=== PATIENT | female | born 1940 | race Caucasian/White ===

== ENCOUNTER 2018-06-21 02:08 | Outpatient (RCR) | payer MEDICARE, BC, SELFPAY ==
[2018-06-21 13:23] LABS: HCT 39.8 % (36.0-46.0); Mean Corp. HGB Concentration 35.2 g/dL (32.0-36.0); Mean Corpuscular Hemoglobin 34.7 pg (27.0-33.0); Mean Corpuscular Volume 98.5 fL (80-95); Mean Platelet Volume 8.3 fL (8.0-11.0); Platelet Count 296 x1000/uL (130-400); RBC 4.04 m/cumm (4.00-5.20); White Blood Cell Count 6.04 k/cumm (4.4-10.8)
== END 2018-07-14 ==
LOC: INF 02:08
PROVIDERS: PCP Internal Medicine; Visit Provider Internal Medicine Hematology & Oncology
DX: E83.19 Other disorders of iron metabolism (principal)
CPT/HCPCS: 99195; 85027

== ENCOUNTER 2018-08-17 01:00 | Outpatient (RCR) | payer MEDICARE, SELFPAY | END 2018-09-13 23:59 | disposition home or self-care (01) | LOC: INF 01:00 | PROVIDERS: PCP Internal Medicine; Visit Provider Internal Medicine Hematology & Oncology | DX: E83.19 Other disorders of iron metabolism (principal) | CPT/HCPCS: 99195 ==

== ENCOUNTER 2018-08-17 12:44 | Outpatient (CLI) | payer MEDICARE, BC, SELFPAY ==
[2018-08-17 13:27] LABS: HCT 43.2 % (36.0-46.0); HGB 14.9 g/dL (12.0-15.5); Mean Corp. HGB Concentration 34.5 g/dL (32.0-36.0); Mean Corpuscular Hemoglobin 34.4 pg (27.0-33.0); Mean Corpuscular Volume 99.8 fL (80-95); Platelet Count 302 x1000/uL (130-400); RBC 4.33 m/cumm (4.00-5.20); RBC Distribution Width 12.4 % (11.7-14.6); White Blood Cell Count 5.05 k/cumm (4.4-10.8)
== END 2018-08-17 13:04 ==
PROVIDERS: PCP Internal Medicine; Visit Provider Internal Medicine Hematology & Oncology
DX: E83.119 Hemochromatosis, unspecified (principal)
CPT/HCPCS: 36415; 85027; 99195

== ENCOUNTER 2018-10-12 12:42 | Outpatient (CLI) | payer MEDICARE, BC, SELFPAY ==
[2018-10-12 13:03] LABS: Abs Immature Grans 0.02 k/cumm (0.0-0.09); Absolute Basophil Count 0.03 k/cumm (0.0-0.2); Absolute Eosinophil Count 0.13 k/cumm (0.0-0.7); Absolute Lymphocyte Count 0.99 k/cumm (1.2-3.4); Basophils % 0.7; HCT 42.7 % (36.0-46.0); HGB 14.7 g/dL (12.0-15.5); Immature Grans % 0.5; Lymphocytes % 22.6; Mean Corp. HGB Concentration 34.4 g/dL (32.0-36.0); Mean Corpuscular Hemoglobin 34.5 pg (27.0-33.0); Mean Corpuscular Volume 100.2 fL (80-95); Monocytes % 13.7; Neutrophils % 59.5; Platelet Count 273 x1000/uL (130-400); RBC 4.26 m/cumm (4.00-5.20); RBC Distribution Width 12.5 % (11.7-14.6); White Blood Cell Count 4.39 k/cumm (4.4-10.8)
[2018-10-12 13:14] LABS: Absolute Neutrophil Count 2.61 k/cumm (1.2-6.7)
== END 2018-10-12 13:02 ==
PROVIDERS: Internal Medicine Hematology & Oncology; PCP Internal Medicine; Visit Provider Nurse Practitioner Adult Health
DX: C50.919 Malignant neoplasm of unspecified site of unspecified female breast (principal)
CPT/HCPCS: 36415; 99195; 85025

== ENCOUNTER 2018-10-12 13:20 | Outpatient (RCR) | payer MEDICARE, BC, SELFPAY | END 2018-10-13 23:59 | disposition home or self-care (01) | LOC: INF 13:20 | PROVIDERS: PCP Internal Medicine; Visit Provider Internal Medicine Hematology & Oncology | DX: E83.19 Other disorders of iron metabolism (principal) | CPT/HCPCS: 99195 ==

== ENCOUNTER 2018-12-07 00:53 | Outpatient (RCR) | payer MEDICARE, BC, SELFPAY ==
[2018-12-07 13:46] LABS: Abs Immature Grans 0.01 k/cumm (0.0-0.09); Absolute Basophil Count 0.03 k/cumm (0.0-0.2); Absolute Eosinophil Count 0.08 k/cumm (0.0-0.7); Absolute Monocyte Count 0.68 k/cumm (0.11-0.7); Basophils % 0.7; HCT 41.6 % (36.0-46.0); HGB 14.4 g/dL (12.0-15.5); Immature Grans % 0.2; Mean Corp. HGB Concentration 34.6 g/dL (32.0-36.0); Mean Corpuscular Hemoglobin 34.4 pg (27.0-33.0); Mean Corpuscular Volume 99.5 fL (80-95); Mean Platelet Volume 8.8 fL (8.0-11.0); Monocytes % 16.6; Neutrophils % 58.5; Platelet Count 284 x1000/uL (130-400); RBC 4.18 m/cumm (4.00-5.20); RBC Distribution Width 12.7 % (11.7-14.6)
== END 2018-12-14 23:59 | disposition home or self-care (01) ==
LOC: INF 00:53
PROVIDERS: Nurse Practitioner Adult Health; PCP Internal Medicine; Visit Provider Internal Medicine Hematology & Oncology
DX: E83.19 Other disorders of iron metabolism (principal)
CPT/HCPCS: 36415; 99195; 85025

== ENCOUNTER 2019-02-01 02:23 | Outpatient (RCR) | payer MEDICARE, BC, SELFPAY ==
[2019-02-01 13:09] LABS: Abs Immature Grans 0.03 k/cumm (0.0-0.09); Absolute Basophil Count 0.04 k/cumm (0.0-0.2); Absolute Eosinophil Count 0.18 k/cumm (0.0-0.7); Absolute Lymphocyte Count 0.92 k/cumm (1.2-3.4); Absolute Monocyte Count 0.93 k/cumm (0.11-0.7); Absolute Neutrophil Count 3.35 k/cumm (1.2-6.7); Basophils % 0.7; Eosinophils % 3.3; HCT 42.1 % (36.0-46.0); HGB 14.7 g/dL (12.0-15.5); Immature Grans % 0.6; Lymphocytes % 16.9; Mean Corp. HGB Concentration 34.9 g/dL (32.0-36.0); Mean Corpuscular Hemoglobin 34.7 pg (27.0-33.0); Mean Corpuscular Volume 99.3 fL (80-95); Mean Platelet Volume 8.7 fL (8.0-11.0); Monocytes % 17.1; Neutrophils % 61.4; Platelet Count 297 x1000/uL (130-400); RBC 4.24 m/cumm (4.00-5.20); RBC Distribution Width 12.4 % (11.7-14.6); White Blood Cell Count 5.45 k/cumm (4.4-10.8)
== END 2019-02-11 23:59 | disposition home or self-care (01) ==
LOC: INF 02:23
PROVIDERS: PCP Internal Medicine; Visit Provider Internal Medicine Hematology & Oncology
DX: E83.119 Hemochromatosis, unspecified (principal); C50.919 Malignant neoplasm of unspecified site of unspecified female breast
CPT/HCPCS: 36415; 99195; 85025

== ENCOUNTER 2019-03-29 01:45 | Outpatient (RCR) | payer MEDICARE, BC, SELFPAY ==
[2019-03-29 13:15] LABS: Abs Immature Grans 0.03 k/cumm (0.0-0.09); Absolute Basophil Count 0.04 k/cumm (0.0-0.2); Absolute Lymphocyte Count 1.07 k/cumm (1.2-3.4); Absolute Monocyte Count 0.63 k/cumm (0.11-0.7); Absolute Neutrophil Count 3.05 k/cumm (1.2-6.7); Basophils % 0.8; HCT 43.3 % (36.0-46.0); HGB 15.3 g/dL (12.0-15.5); Immature Grans % 0.6; Lymphocytes % 21.7; Mean Corp. HGB Concentration 35.3 g/dL (32.0-36.0); Mean Corpuscular Hemoglobin 35.1 pg (27.0-33.0); Mean Corpuscular Volume 99.3 fL (80-95); Monocytes % 12.8; Neutrophils % 62.1; Platelet Count 303 x1000/uL (130-400); RBC 4.36 m/cumm (4.00-5.20); RBC Distribution Width 12.1 % (11.7-14.6); White Blood Cell Count 4.92 k/cumm (4.4-10.8)
== END 2019-04-13 23:59 | disposition home or self-care (01) ==
LOC: INF 01:45
PROVIDERS: Internal Medicine Hematology & Oncology; PCP Internal Medicine; Visit Provider Nurse Practitioner Adult Health
DX: E83.119 Hemochromatosis, unspecified (principal); C50.919 Malignant neoplasm of unspecified site of unspecified female breast
CPT/HCPCS: 36415; 99195; 85025

== ENCOUNTER 2019-04-19 09:49 | Outpatient (CLI) | payer MEDICARE, BC, SELFPAY ==
[2019-04-19 10:12] LABS: Abs Immature Grans 0.02 k/cumm (0.0-0.09); Absolute Basophil Count 0.05 k/cumm (0.0-0.2); Absolute Eosinophil Count 0.08 k/cumm (0.0-0.7); Absolute Lymphocyte Count 0.82 k/cumm (1.2-3.4); Absolute Monocyte Count 0.86 k/cumm (0.11-0.7); Absolute Neutrophil Count 1.18 k/cumm (1.2-6.7); Basophils % 1.7; Eosinophils % 2.7; HGB 14.8 g/dL (12.0-15.5); Immature Grans % 0.7; Lymphocytes % 27.2; Mean Corp. HGB Concentration 35.2 g/dL (32.0-36.0); Mean Corpuscular Hemoglobin 34.8 pg (27.0-33.0); Mean Corpuscular Volume 98.8 fL (80-95); Mean Platelet Volume 8.6 fL (8.0-11.0); Monocytes % 28.6; Neutrophils % 39.1; Platelet Count 299 x1000/uL (130-400); RBC 4.25 m/cumm (4.00-5.20); White Blood Cell Count 3.01 k/cumm (4.4-10.8)
[2019-04-19 10:30] LABS: Iron 143 ug/dL (50-175); Total Iron Binding Capacity 350 ug/dL (250-450); Transferrin Sat 41 % (15-50)
[2019-04-19 10:35] LABS: Diff Comment Agrees w/ Instrument
[2019-04-19 10:36] LABS: RBC Morphology Normal
[2019-04-19 10:39] LABS: ALT 23 U/L (12-78); AST 18 U/L (15-37); Albumin 3.7 g/dL (3.4-5.0); Alkaline Phosphatase 93 U/L (46-116); Anion Gap 8.3 mmol/L (3-11); BUN 15 mg/dL (7-18); Bilirubin, Total 0.6 mg/dL (0.2-1.0); CO2 28.7 mmol/L (21.0-32.0); CREATININE 0.67 mg/dL (0.55-1.02); Calcium 9.5 mg/dL (8.5-10.1); Chloride 92 mmol/L (98-107); Ferritin 40 ng/mL (8-388); Glucose 68 mg/dL (70-100); Potassium 4.4 mmol/L (3.5-5.1); Sodium 129 mmol/L (136-145); Total Protein 7.3 g/dL (6.4-8.2)
== END 2019-04-19 10:09 ==
PROVIDERS: PCP Internal Medicine; Visit Provider Nurse Practitioner Adult Health
DX: C50.919 Malignant neoplasm of unspecified site of unspecified female breast (principal); E83.119 Hemochromatosis, unspecified
CPT/HCPCS: 36415; 80053; 82728; 83540; 83550; 85025

== ENCOUNTER 2019-05-21 01:37 | Outpatient (RCR) | payer MEDICARE, BC, SELFPAY ==
[2019-05-21 13:16] LABS: Abs Immature Grans 0.01 k/cumm (0.0-0.09); Absolute Basophil Count 0.02 k/cumm (0.0-0.2); Absolute Eosinophil Count 0.05 k/cumm (0.0-0.7); Absolute Monocyte Count 0.56 k/cumm (0.11-0.7); Absolute Neutrophil Count 2.78 k/cumm (1.2-6.7); Basophils % 0.5; Eosinophils % 1.1; HCT 43.5 % (36.0-46.0); HGB 15.4 g/dL (12.0-15.5); Immature Grans % 0.2; Lymphocytes % 22.6; Mean Corp. HGB Concentration 35.4 g/dL (32.0-36.0); Mean Corpuscular Hemoglobin 34.7 pg (27.0-33.0); Mean Platelet Volume 8.8 fL (8.0-11.0); Monocytes % 12.7; Neutrophils % 62.9; Platelet Count 304 x1000/uL (130-400); RBC 4.44 m/cumm (4.00-5.20); RBC Distribution Width 12.2 % (11.7-14.6); White Blood Cell Count 4.42 k/cumm (4.4-10.8)
[2019-05-21] MEDS: Normal Saline Flush 10 ML SYR IVP (14:13)
== END 2019-06-13 23:59 | disposition home or self-care (01) ==
LOC: INF 01:37
PROVIDERS: PCP Internal Medicine; Visit Provider Nurse Practitioner Adult Health
DX: C50.919 Malignant neoplasm of unspecified site of unspecified female breast (principal); E83.119 Hemochromatosis, unspecified
CPT/HCPCS: 36415; 99195; 85025

== ENCOUNTER 2019-07-19 04:16 | Outpatient (RCR) | payer MEDICARE, BC, SELFPAY ==
[2019-07-19 13:12] LABS: Abs Immature Grans 0.02 k/cumm (0.0-0.09); Absolute Basophil Count 0.02 k/cumm (0.0-0.2); Absolute Eosinophil Count 0.09 k/cumm (0.0-0.7); Absolute Lymphocyte Count 1.27 k/cumm (1.2-3.4); Absolute Monocyte Count 0.55 k/cumm (0.11-0.7); Absolute Neutrophil Count 2.35 k/cumm (1.2-6.7); Basophils % 0.5; Eosinophils % 2.1; HCT 42.2 % (36.0-46.0); HGB 14.7 g/dL (12.0-15.5); Immature Grans % 0.5; Lymphocytes % 29.5; Mean Corp. HGB Concentration 34.8 g/dL (32.0-36.0); Mean Corpuscular Hemoglobin 35.3 pg (27.0-33.0); Mean Corpuscular Volume 101.2 fL (80-95); Mean Platelet Volume 8.7 fL (8.0-11.0); Monocytes % 12.8; Neutrophils % 54.6; Platelet Count 345 x1000/uL (130-400); RBC 4.17 m/cumm (4.00-5.20); RBC Distribution Width 12.2 % (11.7-14.6)
== END 2019-08-13 23:59 | disposition home or self-care (01) ==
LOC: INF 04:16
PROVIDERS: PCP Internal Medicine; Visit Provider Nurse Practitioner Adult Health
DX: E83.119 Hemochromatosis, unspecified (principal); C50.919 Malignant neoplasm of unspecified site of unspecified female breast
CPT/HCPCS: 36415; 99195; 85025

== ENCOUNTER 2019-09-10 02:03 | Outpatient (RCR) | payer MEDICARE, BC, SELFPAY ==
[2019-09-10 13:15] LABS: HCT 41.7 % (36.0-46.0); HGB 14.3 g/dL (12.0-15.5); Mean Corp. HGB Concentration 34.3 g/dL (32.0-36.0); Mean Corpuscular Hemoglobin 35.1 pg (27.0-33.0); Mean Corpuscular Volume 102.5 fL (80-95); Mean Platelet Volume 8.8 fL (8.0-11.0); Platelet Count 346 x1000/uL (130-400); RBC 4.07 m/cumm (4.00-5.20); RBC Distribution Width 11.9 % (11.7-14.6); White Blood Cell Count 4.94 k/cumm (4.4-10.8)
== END 2019-09-13 23:59 | disposition home or self-care (01) ==
LOC: INF 02:03
PROVIDERS: PCP Internal Medicine; Visit Provider Internal Medicine Hematology & Oncology
DX: E83.119 Hemochromatosis, unspecified (principal)
CPT/HCPCS: 36415; 85027; 99195

== ENCOUNTER 2019-11-05 01:22 | Outpatient (RCR) | payer MEDICARE, BC, SELFPAY ==
[2019-11-05 13:10] LABS: Abs Immature Grans 0.01 k/cumm (0.0-0.09); Absolute Basophil Count 0.03 k/cumm (0.0-0.2); Absolute Eosinophil Count 0.18 k/cumm (0.0-0.7); Absolute Lymphocyte Count 1.13 k/cumm (1.2-3.4); Absolute Monocyte Count 0.73 k/cumm (0.11-0.7); Absolute Neutrophil Count 3.37 k/cumm (1.2-6.7); Basophils % 0.6; Eosinophils % 3.3; HCT 39.8 % (36.0-46.0); HGB 13.4 g/dL (12.0-15.5); Immature Grans % 0.2; Lymphocytes % 20.7; Mean Corp. HGB Concentration 33.7 g/dL (32.0-36.0); Mean Platelet Volume 8.8 fL (8.0-11.0); Monocytes % 13.4; Neutrophils % 61.8; Platelet Count 269 x1000/uL (130-400); RBC 3.94 m/cumm (4.00-5.20); RBC Distribution Width 12.7 % (11.7-14.6); White Blood Cell Count 5.45 k/cumm (4.4-10.8)
== END 2019-11-13 23:59 | disposition home or self-care (01) ==
LOC: INF 01:22
PROVIDERS: PCP Internal Medicine; Visit Provider Internal Medicine Hematology & Oncology
DX: E83.119 Hemochromatosis, unspecified (principal); C50.919 Malignant neoplasm of unspecified site of unspecified female breast
CPT/HCPCS: 36415; 99195; 85025

== ENCOUNTER 2019-12-31 03:13 | Outpatient (RCR) | payer MEDICARE, BC, SELFPAY ==
[2019-12-31 13:06] LABS: Abs Immature Grans 0.02 k/cumm (0.0-0.09); Absolute Basophil Count 0.03 k/cumm (0.0-0.2); Absolute Eosinophil Count 0.05 k/cumm (0.0-0.7); Absolute Lymphocyte Count 0.86 k/cumm (1.2-3.4); Absolute Neutrophil Count 3.81 k/cumm (1.2-6.7); Basophils % 0.5; Eosinophils % 0.9; HCT 40.5 % (36.0-46.0); HGB 13.6 g/dL (12.0-15.5); Immature Grans % 0.4 %; Lymphocytes % 15.7; Mean Corp. HGB Concentration 33.6 g/dL (32.0-36.0); Mean Corpuscular Hemoglobin 32.6 pg (27.0-33.0); Mean Corpuscular Volume 97.1 fL (80-95); Mean Platelet Volume 8.7 fL (8.0-11.0); Monocytes % 12.8; Neutrophils % 69.7; Platelet Count 333 x1000/uL (130-400); RBC 4.17 m/cumm (4.00-5.20); RBC Distribution Width 12.6 % (11.7-14.6); White Blood Cell Count 5.47 k/cumm (4.4-10.8)
[2020-04-21 13:17] LABS: Mean Corp. HGB Concentration 34.9 g/dL (32.0-36.0); Mean Corpuscular Hemoglobin 33.2 pg (27.0-33.0); Mean Corpuscular Volume 95.1 fL (80-95); Mean Platelet Volume 8.7 fL (8.0-11.0); Platelet Count 352 x1000/uL (130-400); RBC 4.52 m/cumm (4.00-5.20); RBC Distribution Width 13.7 % (11.7-14.6); White Blood Cell Count 4.68 k/cumm (4.4-10.8)
== END 2020-01-12 23:01 | disposition other institution (70) ==
LOC: INF 03:13
PROVIDERS: PCP Internal Medicine; Visit Provider Internal Medicine Hematology & Oncology
DX: E83.119 Hemochromatosis, unspecified (principal); C50.919 Malignant neoplasm of unspecified site of unspecified female breast
CPT/HCPCS: 36415; 85027; 99195; 85025

== ENCOUNTER 2020-04-23 15:49 | Outpatient (RCR) | payer MEDICARE, BC, SELFPAY | END 2020-05-13 23:59 | disposition home or self-care (01) | LOC: INF 15:49 | PROVIDERS: PCP Internal Medicine; Visit Provider Internal Medicine Hematology & Oncology | DX: E83.118 Other hemochromatosis (principal) | CPT/HCPCS: 36415; 85027; 99195 ==

== ENCOUNTER 2020-06-23 02:03 | Outpatient (RCR) | payer MEDICARE, BC, SELFPAY ==
[2020-06-23 13:08] LABS: Abs Immature Grans 0.03 10^3/uL (0.0-0.06); Absolute Basophil Count 0.05 10^3/uL (0.0-0.2); Absolute Eosinophil Count 0.07 10^3/uL (0.0-0.7); Absolute Lymphocyte Count 1.04 10^3/uL (1.2-3.4); Absolute Monocyte Count 0.76 10^3/uL (0.1-0.8); Absolute Neutrophil Count 3.08 10^3/uL (1.2-6.7); Eosinophils % 1.4; HGB 14.1 g/dL (11.2-15.7); Immature Grans % 0.6; Lymphocytes % 20.7; MCH 34.1 pg (27.0-33.0); MCHC 34.4 % (32.0-36.0); MCV 99.3 fL (80-95); MPV 8.5 fL (8.0-11.0); Monocytes % 15.1; Neutrophils % 61.2; Nucleated RBC 0 %; Platelet Count 331 10^3/uL (130-400); RBC 4.13 10^6/uL (3.93-5.22); RDW 12.4 % (11.7-14.6); WBC 5.03 10^3/uL (4.4-10.8)
[2020-06-23] MEDS: Normal Saline Flush 10 ML SYR IVP (13:31)
[2020-06-23 14:02] LABS: ALT 25 U/L (14-59); AST 22 U/L (15-37); Alkaline Phosphatase 99 U/L (46-116); BUN 12 mg/dL (7-18); Bilirubin, Total 0.5 mg/dL (0.2-1.0); CREATININE 0.63 mg/dL (0.55-1.02); Calcium 9.5 mg/dL (8.5-10.1); Chloride 92 mmol/L (98-107); Ferritin 41 ng/mL (8-252); Glucose 75 mg/dL (74-106); Potassium 3.7 mmol/L (3.5-5.1); Sodium 129 mmol/L (136-145); Total Protein 7.2 g/dL (6.4-8.2)
== END 2020-07-14 23:59 | disposition home or self-care (01) ==
LOC: INF 02:03
PROVIDERS: PCP Internal Medicine; Visit Provider Internal Medicine Hematology & Oncology
DX: E83.19 Other disorders of iron metabolism (principal)
CPT/HCPCS: 36415; 80053; 99195; 82728; 85025

== ENCOUNTER 2020-08-18 01:01 | Outpatient (RCR) | payer MEDICARE, BC, SELFPAY ==
[2020-08-18 13:01] LABS: Abs Immature Grans 0.02 10^3/uL (0.0-0.06); Absolute Basophil Count 0.04 10^3/uL (0.0-0.2); Absolute Eosinophil Count 0.05 10^3/uL (0.0-0.7); Absolute Lymphocyte Count 1.22 10^3/uL (1.2-3.4); Absolute Monocyte Count 0.66 10^3/uL (0.1-0.8); Basophils % 0.7; Eosinophils % 0.9; Immature Grans % 0.3; Lymphocytes % 21.1; MCH 35.5 pg (27.0-33.0); MCHC 34.9 % (32.0-36.0); MCV 101.9 fL (80-95); MPV 8.5 fL (8.0-11.0); Monocytes % 11.4; Neutrophils % 65.6; Nucleated RBC 0 %; Platelet Count 337 10^3/uL (130-400); RBC 4.22 10^6/uL (3.93-5.22); RDW-SD 45.1 fL; WBC 5.79 10^3/uL (4.4-10.8)
== END 2020-09-13 23:59 | disposition home or self-care (01) ==
LOC: INF 01:01
PROVIDERS: PCP Internal Medicine; Visit Provider Internal Medicine Hematology & Oncology
DX: E83.119 Hemochromatosis, unspecified (principal)
CPT/HCPCS: 36415; 99195; 85025

== ENCOUNTER 2020-10-20 13:00 | Outpatient (RCR) | payer MEDICARE, BC, SELFPAY ==
[2020-10-20 13:21] LABS: Abs Immature Grans 0.03 10^3/uL (0.0-0.06); Absolute Basophil Count 0.04 10^3/uL (0.0-0.2); Absolute Eosinophil Count 0.13 10^3/uL (0.0-0.7); Absolute Lymphocyte Count 1.15 10^3/uL (1.2-3.4); Absolute Monocyte Count 0.74 10^3/uL (0.1-0.8); Absolute Neutrophil Count 2.53 10^3/uL (1.2-6.7); Basophils % 0.9; Eosinophils % 2.8; HCT 43.9 % (36.0-46.0); HGB 14.8 g/dL (11.2-15.7); Immature Grans % 0.6; Lymphocytes % 24.9; MCH 33.7 pg (27.0-33.0); MCHC 33.7 % (32.0-36.0); MPV 8.7 fL (8.0-11.0); Neutrophils % 54.8; Nucleated RBC 0 %; Platelet Count 312 10^3/uL (130-400); RBC 4.39 10^6/uL (3.93-5.22); RDW 12.1 % (11.7-14.6); WBC 4.62 10^3/uL (4.4-10.8)
== END 2020-11-13 23:59 | disposition home or self-care (01) ==
LOC: INF 13:00
PROVIDERS: PCP Internal Medicine; Visit Provider Internal Medicine Hematology & Oncology
DX: E83.110 Hereditary hemochromatosis (principal)
CPT/HCPCS: 36415; 99195; 85025

== ENCOUNTER 2020-12-22 13:00 | Outpatient (RCR) | payer MEDICARE, BC, SELFPAY ==
[2020-12-22 13:03] LABS: Abs Immature Grans 0.03 10^3/uL (0.0-0.06); Absolute Basophil Count 0.06 10^3/uL (0.0-0.2); Absolute Eosinophil Count 0.17 10^3/uL (0.0-0.7); Absolute Lymphocyte Count 1.19 10^3/uL (1.2-3.4); Absolute Monocyte Count 0.92 10^3/uL (0.1-0.8); Absolute Neutrophil Count 2.14 10^3/uL (1.2-6.7); Basophils % 1.3; Eosinophils % 3.8; HGB 14.4 g/dL (11.2-15.7); Immature Grans % 0.7; Lymphocytes % 26.4; MCHC 33.5 % (32.0-36.0); MCV 101.4 fL (80-95); MPV 8.7 fL (8.0-11.0); Monocytes % 20.4; Neutrophils % 47.4; Nucleated RBC 0 %; Platelet Count 299 10^3/uL (130-400); RBC 4.24 10^6/uL (3.93-5.22); RDW 12.5 % (11.7-14.6); WBC 4.51 10^3/uL (4.4-10.8)
[2020-12-22 13:28] LABS: Iron 57 ug/dL (50-170); Total Iron Binding Capacity 389 ug/dL (250-450); Transferrin Sat 15 % (15-50)
[2020-12-22] MEDS: Normal Saline Flush 10 ML SYR IVP (13:28)
[2020-12-22 13:29] LABS: ALT 24 U/L (14-59); AST 18 U/L (15-37); Albumin 3.8 g/dL (3.4-5.0); Alkaline Phosphatase 114 U/L (46-116); Anion Gap 8.3 mmol/L (3-11); BUN 13 mg/dL (7-18); Bilirubin, Total 0.4 mg/dL (0.2-1.0); CO2 27.7 mmol/L (21.0-32.0); CREATININE 0.7 mg/dL (0.55-1.02); Calcium 9.6 mg/dL (8.5-10.1); Chloride 97 mmol/L (98-107); Ferritin 25 ng/mL (8-252); Glucose 82 mg/dL (74-106); Potassium 3.7 mmol/L (3.5-5.1); Sodium 133 mmol/L (136-145); Total Protein 7.8 g/dL (6.4-8.2)
== END 2021-01-11 23:59 | disposition home or self-care (01) ==
LOC: INF 13:00
PROVIDERS: PCP Internal Medicine; Visit Provider Internal Medicine Hematology & Oncology
DX: E83.110 Hereditary hemochromatosis (principal)
CPT/HCPCS: 36415; 80053; 99195; 82728; 83540; 83550; 85025

== ENCOUNTER 2021-02-03 01:39 | Outpatient (CLI) | payer MEDICARE, BC, SELFPAY ==
--- NOTE | 2021-02-03 | DI.DEXA_ITS ---
EXAM: XR DEXA BONE DENSITY W/WO SHELLY CLINICAL HISTORY: SCREENING FOR OSTEOPOROSIS IN POSTMENOPAUSAL WOMAN,Z78.0,H/O OSTEOPENIA TECHNIQUE: Routine DEXA evaluation of the lumbar spine, hip, or forearm. COMPARISON: Prior DXA scans, most recent being November 2016 FINDINGS: Performed on a [employer] unit. Lateral image: No compression fracture evident. Lumbar Spine total T-score: -1.6 . Prior 2017 reading was -0.9 Hip total T-score:-2.6. Prior 2017 reading was -2.0 Independent reading at the femoral neck level yields a T-score of -2.5 Forearm total T-score: -1.6. IMPRESSION: Bone mineral density measures in the osteoporosis range. Fracture risk is high. Note: Any spine fracture indicates 5x risk for subsequent spine fracture and 2x risk for subsequent h ip fracture. World Health Organization criteria for BMD interpretation classify patients: Normal...... T- Score at or above -1.0 Osteopenic... T- Score between -1.0 and -2.5 Osteoporosis... T-Score at or below -2.5
== END 2021-02-03 01:59 ==
PROVIDERS: PCP Internal Medicine; Visit Provider Internal Medicine
DX: Z78.0 Asymptomatic menopausal state (principal); M85.89 Other specified disorders of bone density and structure, multiple sites
CPT/HCPCS: 77080

== ENCOUNTER 2021-02-17 13:00 | Outpatient (RCR) | payer MEDICARE, BC, SELFPAY ==
[2021-02-17 13:04] LABS: Abs Immature Grans 0.04 10^3/uL (0.0-0.06); Absolute Basophil Count 0.04 10^3/uL (0.0-0.2); Absolute Eosinophil Count 0.09 10^3/uL (0.0-0.7); Absolute Lymphocyte Count 1.04 10^3/uL (1.2-3.4); Absolute Monocyte Count 0.66 10^3/uL (0.1-0.8); Absolute Neutrophil Count 2.78 10^3/uL (1.2-6.7); Basophils % 0.9; Eosinophils % 1.9; HCT 38.6 % (36.0-46.0); HGB 12.9 g/dL (11.2-15.7); Immature Grans % 0.9; Lymphocytes % 22.4; MCH 32.9 pg (27.0-33.0); MCHC 33.4 % (32.0-36.0); MCV 98.5 fL (80-95); MPV 9.2 fL (8.0-11.0); Monocytes % 14.2; Neutrophils % 59.7; Nucleated RBC 0 %; Platelet Count 359 10^3/uL (130-400); RBC 3.92 10^6/uL (3.93-5.22); RDW 12.6 % (11.7-14.6); RDW-SD 45.6 fL; WBC 4.65 10^3/uL (4.4-10.8)
[2021-02-17] MEDS: Normal Saline Flush 10 ML SYR IVP (13:48)
== END 2021-03-13 23:59 | disposition home or self-care (01) ==
LOC: INF 13:00
PROVIDERS: PCP Internal Medicine; Visit Provider Internal Medicine Hematology & Oncology
DX: E83.110 Hereditary hemochromatosis (principal)
CPT/HCPCS: 36415; 99195; 85025

== ENCOUNTER 2021-04-14 13:00 | Outpatient (RCR) | payer MEDICARE, BC, SELFPAY ==
[2021-04-14 13:07] LABS: Abs Immature Grans 0.02 10^3/uL (0.0-0.06); Absolute Basophil Count 0.05 10^3/uL (0.0-0.2); Absolute Lymphocyte Count 1.04 10^3/uL (1.2-3.4); Absolute Monocyte Count 0.56 10^3/uL (0.1-0.8); Absolute Neutrophil Count 3.33 10^3/uL (1.2-6.7); Eosinophils % 3.8; HCT 42.7 % (36.0-46.0); HGB 14.1 g/dL (11.2-15.7); Immature Grans % 0.4; MCH 31.8 pg (27.0-33.0); MCV 96.4 fL (80-95); Monocytes % 10.8; Nucleated RBC 0 %; Platelet Count 351 10^3/uL (130-400); RBC 4.43 10^6/uL (3.93-5.22); RDW 13.6 % (11.7-14.6); RDW-SD 49.1 fL
[2021-04-14] MEDS: Normal Saline Flush 10 ML SYR IVP (13:40)
== END 2021-05-13 23:59 | disposition home or self-care (01) ==
LOC: INF 13:00
PROVIDERS: PCP Internal Medicine; Visit Provider Internal Medicine Hematology & Oncology
DX: E83.110 Hereditary hemochromatosis (principal)
CPT/HCPCS: 36415; 99195; 85025

== ENCOUNTER 2021-06-09 13:00 | Outpatient (RCR) | payer MEDICARE, BC, SELFPAY ==
[2021-06-09 13:18] LABS: HCT 40.1 % (36.0-46.0); MCH 31.7 pg (27.0-33.0); MCHC 32.4 % (32.0-36.0); MCV 97.8 fL (80-95); MPV 9.1 fL (8.0-11.0); Platelet Count 285 10^3/uL (130-400); RDW 13.8 % (11.7-14.6); WBC 3.76 10^3/uL (4.4-10.8)
[2021-06-09] MEDS: Normal Saline Flush 10 ML SYR IVP (14:09)
== END 2021-06-13 23:59 | disposition home or self-care (01) ==
LOC: INF 13:00
PROVIDERS: PCP Internal Medicine; Visit Provider Internal Medicine Hematology & Oncology
DX: E83.110 Hereditary hemochromatosis (principal)
CPT/HCPCS: 36415; 85027; 99195

== ENCOUNTER 2021-08-04 13:00 | Outpatient (RCR) | payer MEDICARE, BC, SELFPAY ==
[2021-08-04] MEDS: Normal Saline Flush 10 ML SYR IVP (12:59)
[2021-08-04 13:05] LABS: Abs Immature Grans 0.01 10^3/uL (0.0-0.06); Absolute Basophil Count 0.05 10^3/uL (0.0-0.2); Absolute Eosinophil Count 0.24 10^3/uL (0.0-0.7); Absolute Lymphocyte Count 1.26 10^3/uL (1.2-3.4); Absolute Monocyte Count 0.85 10^3/uL (0.1-0.8); Absolute Neutrophil Count 2.12 10^3/uL (1.2-6.7); Basophils % 1.1; Eosinophils % 5.3; HCT 41.5 % (36.0-46.0); HGB 13.3 g/dL (11.2-15.7); Immature Grans % 0.2; Lymphocytes % 27.8; MCH 31.2 pg (27.0-33.0); MCV 97.4 fL (80-95); MPV 9.1 fL (8.0-11.0); Monocytes % 18.8; Neutrophils % 46.8; Nucleated RBC 0 %; Platelet Count 285 10^3/uL (130-400); RBC 4.26 10^6/uL (3.93-5.22); RDW 14.3 % (11.7-14.6); WBC 4.53 10^3/uL (4.4-10.8)
== END 2021-08-13 23:59 | disposition home or self-care (01) ==
LOC: INF 13:00
PROVIDERS: Nurse Practitioner Family; PCP Internal Medicine; Visit Provider Internal Medicine Hematology & Oncology
DX: E83.110 Hereditary hemochromatosis (principal)
CPT/HCPCS: 36415; 99195; 85025

== ENCOUNTER 2021-09-29 13:00 | Outpatient (RCR) | payer MEDICARE, BC, SELFPAY ==
[2021-09-29 13:22] LABS: HCT 41.3 % (36.0-46.0); HGB 13.3 g/dL (11.2-15.7); MCH 31.2 pg (27.0-33.0); MCHC 32.2 % (32.0-36.0); MCV 96.9 fL (80-95); MPV 9.3 fL (8.0-11.0); Platelet Count 338 10^3/uL (130-400); RBC 4.26 10^6/uL (3.93-5.22); RDW 14.1 % (11.7-14.6); RDW-SD 50.9 fL; WBC 4.56 10^3/uL (4.4-10.8)
[2021-09-29] MEDS: Normal Saline Flush 10 ML SYR IVP (13:33)
== END 2021-10-13 23:59 | disposition home or self-care (01) ==
LOC: INF 13:00
PROVIDERS: PCP Internal Medicine; Visit Provider Internal Medicine Hematology & Oncology
DX: E83.110 Hereditary hemochromatosis (principal)
CPT/HCPCS: 36415; 85027; 99195

== ENCOUNTER 2021-12-01 13:00 | Outpatient (RCR) | payer MEDICARE, BC, SELFPAY ==
[2021-12-01] MEDS: Normal Saline Flush 10 ML SYR IVP (13:03)
[2021-12-01 13:15] LABS: HCT 41.4 % (36.0-46.0); HGB 13.4 g/dL (11.2-15.7); MCH 31.5 pg (27.0-33.0); MCHC 32.4 % (32.0-36.0); MCV 97.2 fL (80-95); MPV 9.4 fL (8.0-11.0); Platelet Count 301 10^3/uL (130-400); RBC 4.26 10^6/uL (3.93-5.22); RDW 14.2 % (11.7-14.6); RDW-SD 50.9 fL; WBC 5.38 10^3/uL (4.4-10.8)
== END 2021-12-14 23:59 | disposition home or self-care (01) ==
LOC: INF 13:00
PROVIDERS: PCP Internal Medicine; Visit Provider Internal Medicine Hematology & Oncology
DX: E83.110 Hereditary hemochromatosis (principal)
CPT/HCPCS: 36415; 85027; 99195

== ENCOUNTER 2022-01-26 00:52 | Outpatient (RCR) | payer MEDICARE, BC, SELFPAY ==
[2022-01-26 13:21] LABS: HCT 40.9 % (36.0-46.0); HGB 13.3 g/dL (11.2-15.7); MCH 31.7 pg (27.0-33.0); MCHC 32.5 % (32.0-36.0); MCV 97.6 fL (80-95); MPV 9.2 fL (8.0-11.0); Platelet Count 298 10^3/uL (130-400); RBC 4.19 10^6/uL (3.93-5.22); RDW 14.2 % (11.7-14.6); RDW-SD 51.1 fL; WBC 6.22 10^3/uL (4.4-10.8)
[2022-01-26] MEDS: Normal Saline Flush 10 ML SYR IVP (13:43)
== END 2022-02-11 23:59 | disposition home or self-care (01) ==
LOC: INF 00:52
PROVIDERS: PCP Internal Medicine; Visit Provider Internal Medicine Hematology & Oncology
DX: E83.110 Hereditary hemochromatosis (principal)
CPT/HCPCS: 36415; 85027; 99195

== ENCOUNTER 2022-03-23 00:56 | Outpatient (RCR) | payer MEDICARE, BC, SELFPAY ==
[2022-03-23] MEDS: Normal Saline Flush 10 ML SYR IVP (13:00)
[2022-03-23 13:21] LABS: HCT 42.6 % (36.0-46.0); HGB 13.3 g/dL (11.2-15.7); MCH 30.5 pg (27.0-33.0); MCHC 31.2 % (32.0-36.0); MCV 98 fL (80-95); MPV 9.2 fL (8.0-11.0); Platelet Count 317 10^3/uL (130-400); RBC 4.36 10^6/uL (3.93-5.22); RDW 14.2 % (11.7-14.6); RDW-SD 51.5 fL; WBC 5.81 10^3/uL (4.4-10.8)
== END 2022-04-13 23:59 | disposition home or self-care (01) ==
LOC: INF 00:56
PROVIDERS: PCP Internal Medicine; Visit Provider Internal Medicine Hematology & Oncology
DX: E83.110 Hereditary hemochromatosis (principal)
CPT/HCPCS: 36415; 85027; 99195

== ENCOUNTER 2022-05-18 02:04 | Outpatient (RCR) | payer MEDICARE, BC, SELFPAY ==
[2022-05-18 13:15] LABS: HCT 39.3 % (36.0-46.0); MCHC 33.1 % (32.0-36.0); MCV 94 fL (80-95); MPV 9.3 fL (8.0-11.0); Platelet Count 286 10^3/uL (130-400); RBC 4.19 10^6/uL (3.93-5.22); RDW 14.2 % (11.7-14.6); RDW-SD 48.9 fL; WBC 4.53 10^3/uL (4.4-10.8)
== END 2022-06-13 23:59 | disposition home or self-care (01) ==
LOC: INF 02:04
PROVIDERS: PCP Internal Medicine; Visit Provider Internal Medicine Hematology & Oncology
DX: E83.110 Hereditary hemochromatosis (principal)
CPT/HCPCS: 36415; 85027; 99195

== ENCOUNTER 2022-07-13 02:47 | Outpatient (RCR) | payer MEDICARE, BC, SELFPAY ==
[2022-07-13] MEDS: Normal Saline Flush 10 ML SYR IVP (13:22)
[2022-07-13 13:25] LABS: HCT 40.2 % (36.0-46.0); MCH 30.8 pg (27.0-33.0); MCHC 32.3 % (32.0-36.0); MCV 95 fL (80-95); MPV 9.3 fL (8.0-11.0); Platelet Count 306 10^3/uL (130-400); RBC 4.22 10^6/uL (3.93-5.22); RDW 15.2 % (11.7-14.6); RDW-SD 53.3 fL
== END 2022-07-14 23:59 | disposition home or self-care (01) ==
LOC: INF 02:47
PROVIDERS: PCP Internal Medicine; Visit Provider Internal Medicine Hematology & Oncology
DX: E83.110 Hereditary hemochromatosis (principal)
CPT/HCPCS: 36415; 85027; 99195

== ENCOUNTER 2022-09-07 02:16 | Outpatient (RCR) | payer MEDICARE, BC, SELFPAY ==
[2022-09-07 13:22] LABS: Abs Immature Grans 0.02 10^3/uL (0.0-0.06); Absolute Basophil Count 0.06 10^3/uL (0.0-0.2); Absolute Eosinophil Count 0.07 10^3/uL (0.0-0.7); Absolute Monocyte Count 0.57 10^3/uL (0.1-0.8); Absolute Neutrophil Count 3.05 10^3/uL (1.2-6.7); Basophils % 1.2; Eosinophils % 1.4; Immature Grans % 0.4; Lymphocytes % 27.1; MCH 31.6 pg (27.0-33.0); MCHC 32.5 % (32.0-36.0); MCV 97 fL (80-95); MPV 9.2 fL (8.0-11.0); Neutrophils % 58.9; Platelet Count 340 10^3/uL (130-400); RBC 4.11 10^6/uL (3.93-5.22); RDW 14.2 % (11.7-14.6); RDW-SD 51.5 fL; WBC 5.17 10^3/uL (4.4-10.8)
[2022-09-07 14:05] LABS: Iron 74 ug/dL (50-170); Total Iron Binding Capacity 432 ug/dL (250-450); Transferrin Sat 17 % (15-50)
[2022-09-07 14:20] LABS: ALT 15 U/L (14-59); AST 16 U/L (15-37); Albumin 3.9 g/dL (3.4-5.0); Alkaline Phosphatase 85 U/L (46-116); Anion Gap 6.7 mmol/L (3-11); BUN 20 mg/dL (7-18); Bilirubin, Total 0.4 mg/dL (0.2-1.0); CO2 29.3 mmol/L (21.0-32.0); CREATININE 0.9 mg/dL (0.55-1.02); Calcium 9.7 mg/dL (8.5-10.1); Chloride 103 mmol/L (98-107); Estimated GFR 64.23 (mL/min/1.73m2); Ferritin 21 ng/mL (8-252); Glucose 94 mg/dL (74-106); Potassium 3.8 mmol/L (3.5-5.1); Sodium 139 mmol/L (136-145); Total Protein 7.8 g/dL (6.4-8.2)
== END 2022-09-13 23:59 | disposition home or self-care (01) ==
LOC: INF 02:16
PROVIDERS: PCP Internal Medicine; Visit Provider Internal Medicine Hematology & Oncology
DX: E83.110 Hereditary hemochromatosis (principal)
CPT/HCPCS: 36415; 80053; 82728; 83540; 83550; 85025

== ENCOUNTER 2022-09-14 03:06 | Outpatient (RCR) | payer MEDICARE, BC, SELFPAY | END 2022-10-13 23:59 | disposition home or self-care (01) | LOC: INF 03:06 | PROVIDERS: PCP Internal Medicine; Visit Provider Internal Medicine Hematology & Oncology | DX: E83.110 Hereditary hemochromatosis (principal) | CPT/HCPCS: 99195 ==

== ENCOUNTER 2022-12-07 03:08 | Outpatient (RCR) | payer MEDICARE, BC, SELFPAY ==
[2022-12-07 13:13] LABS: Abs Immature Grans 0.02 10^3/uL (0.0-0.06); Absolute Basophil Count 0.04 10^3/uL (0.0-0.2); Absolute Eosinophil Count 0.17 10^3/uL (0.0-0.7); Absolute Lymphocyte Count 1.24 10^3/uL (1.2-3.4); Absolute Monocyte Count 0.49 10^3/uL (0.1-0.8); Absolute Neutrophil Count 3.06 10^3/uL (1.2-6.7); Basophils % 0.8; Eosinophils % 3.4; HCT 40.1 % (36.0-46.0); HGB 12.9 g/dL (11.2-15.7); Immature Grans % 0.4; Lymphocytes % 24.7; MCH 31.2 pg (27.0-33.0); MCHC 32.2 % (32.0-36.0); MCV 97 fL (80-95); MPV 9.1 fL (8.0-11.0); Monocytes % 9.8; Neutrophils % 60.9; Platelet Count 309 10^3/uL (130-400); RBC 4.14 10^6/uL (3.93-5.22); RDW-SD 49.9 fL; WBC 5.02 10^3/uL (4.4-10.8)
[2022-12-07 13:41] LABS: ALT 17 U/L (14-59); AST 17 U/L (15-37); Albumin 3.9 g/dL (3.4-5.0); Alkaline Phosphatase 97 U/L (46-116); Anion Gap 6.8 mmol/L (3-11); BUN 19 mg/dL (7-18); Bilirubin, Total 0.5 mg/dL (0.2-1.0); CO2 28.2 mmol/L (21.0-32.0); Calcium 9.8 mg/dL (8.5-10.1); Chloride 98 mmol/L (98-107); Estimated GFR 56.25 (mL/min/1.73m2); Ferritin 19 ng/mL (8-252); Glucose 103 mg/dL (74-106); Potassium 3.7 mmol/L (3.5-5.1); Sodium 133 mmol/L (136-145); Total Protein 7.6 g/dL (6.4-8.2)
== END 2022-12-14 23:59 | disposition home or self-care (01) ==
LOC: INF 03:08
PROVIDERS: Nurse Practitioner Adult Health; PCP Internal Medicine; Visit Provider Internal Medicine Hematology & Oncology
DX: E83.110 Hereditary hemochromatosis (principal)
CPT/HCPCS: 36415; 80053; 82728; 85025

== ENCOUNTER 2022-12-16 02:55 | Outpatient (RCR) | payer MEDICARE, BC, SELFPAY | END 2023-01-11 23:59 | disposition home or self-care (01) | LOC: INF 02:55 | PROVIDERS: PCP Internal Medicine; Visit Provider Internal Medicine Hematology & Oncology | DX: E83.110 Hereditary hemochromatosis (principal) | CPT/HCPCS: 99195 ==

== ENCOUNTER 2023-04-07 01:50 | Outpatient (CLI) | payer MEDICARE, BC, SELFPAY ==
--- NOTE | 2023-04-07 14:00 | DI.DEXA_ITS ---
Exam(s) XR DEXA BONE DENSITY W/WO SHELLY EXAM: XR DEXA BONE DENSITY W/WO SHELLY CLINICAL HISTORY: OSTEOPOROSIS WO CURRENT PATHOLOGICAL FX, M81.0 TECHNIQUE: COMPARISON: CR XR DEXA BONE DENSITY W/WO SHELLY from 02/03/2021 FINDINGS: Lateral Spine Image: Unremarkable. No compression deformities identified. Left hip: Total T-Score: -2.5. This compares to -2.6 on the prior examination. Total Z-Score: -0.3 T- and Z-scores: Findings are consistent with osteoporosis. Lumbar Spine: Total T-Score: -0.9. This compares with -1.6 on the prior examination. Total Z-Score: 1.9 T- and Z-scores: Within normal limits. IMPRESSION: Findings of osteoporosis in the left hip.
== END 2023-04-07 02:10 ==
LOC: DI 01:52
PROVIDERS: PCP Internal Medicine; Visit Provider Internal Medicine
DX: M81.0 Age-related osteoporosis without current pathological fracture (principal); M85.89 Other specified disorders of bone density and structure, multiple sites; Z13.820 Encounter for screening for osteoporosis
CPT/HCPCS: 77080

== ENCOUNTER 2023-04-15 00:57 | Outpatient (RCR) | payer MEDICARE, BC, SELFPAY ==
[2023-04-15 13:11] LABS: HCT 39.3 % (36.0-46.0); HGB 12.6 g/dL (11.2-15.7); MCH 30.5 pg (27.0-33.0); MCHC 32.1 % (32.0-36.0); MCV 95 fL (80-95); Platelet Count 306 10^3/uL (130-400); RBC 4.13 10^6/uL (3.93-5.22); RDW 14.6 % (11.7-14.6); RDW-SD 51.4 fL
[2023-04-15] MEDS: Normal Saline Flush 10 ML SYR IVP (13:58)
== END 2023-05-13 23:59 | disposition home or self-care (01) ==
LOC: INF 00:57
PROVIDERS: PCP Internal Medicine; Visit Provider Internal Medicine Hematology & Oncology
DX: E83.110 Hereditary hemochromatosis (principal)
CPT/HCPCS: 36415; 85027; 99195

== ENCOUNTER 2023-07-22 11:24 | Outpatient (CLI) | payer MEDICARE, BC, SELFPAY ==
[2023-07-22 11:07] LABS: Abs Immature Grans 0.04 10^3/uL (0.0-0.06); Absolute Basophil Count 0.04 10^3/uL (0.0-0.2); Absolute Eosinophil Count 0.15 10^3/uL (0.0-0.7); Absolute Lymphocyte Count 1.16 10^3/uL (1.2-3.4); Absolute Monocyte Count 0.65 10^3/uL (0.1-0.8); Absolute Neutrophil Count 2.59 10^3/uL (1.2-6.7); Basophils % 0.9; Eosinophils % 3.2; HGB 12.3 g/dL (11.2-15.7); Immature Grans % 0.9; Lymphocytes % 25.1; MCH 31.9 pg (27.0-33.0); MCHC 33.2 % (32.0-36.0); MCV 96 fL (80-95); MPV 8.7 fL (8.0-11.0); Neutrophils % 55.9; Platelet Count 345 10^3/uL (130-400); RBC 3.85 10^6/uL (3.93-5.22); RDW 14.2 % (11.7-14.6); RDW-SD 50.1 fL; WBC 4.63 10^3/uL (4.4-10.8)
[2023-07-22 11:56] LABS: Iron 35 ug/dL (50-170); Total Iron Binding Capacity 380 ug/dL (250-450); Transferrin Sat 9 % (15-50)
[2023-07-22 12:08] LABS: ALT 19 U/L (14-59); AST 17 U/L (15-37); Albumin 3.6 g/dL (3.4-5.0); Alkaline Phosphatase 109 U/L (46-116); Anion Gap 5.9 mmol/L (3-11); BUN 18 mg/dL (7-18); Bilirubin, Total 0.5 mg/dL (0.2-1.0); CO2 28.1 mmol/L (21.0-32.0); CREATININE 0.9 mg/dL (0.55-1.02); Calcium 10.2 mg/dL (8.5-10.1); Chloride 101 mmol/L (98-107); Estimated GFR 63.83 (mL/min/1.73m2); Ferritin 17 ng/mL (8-252); Glucose 101 mg/dL (74-106); Potassium 4.8 mmol/L (3.5-5.1); Sodium 135 mmol/L (136-145); Total Protein 7.4 g/dL (6.4-8.2)
== END 2023-07-22 11:25 | disposition home or self-care (01) ==
LOC: LBO 11:25
PROVIDERS: PCP Internal Medicine; Visit Provider Internal Medicine Hematology & Oncology
DX: E83.119 Hemochromatosis, unspecified (principal)
CPT/HCPCS: 36415; 80053; 82728; 83540; 83550; 85025

== ENCOUNTER 2023-07-27 09:28 | Outpatient (REF) | payer MEDICARE, BC, SELFPAY ==
[2023-07-27 13:46] LABS: Creatinine,Urine 49.53 mg/dL
[2023-07-27 13:49] LABS: Creatinine,24hr Ur 0.74 g/24hr (0.60-1.80); Total Volume 1500 ml
[2023-07-28 08:56] LABS: Calcium Urine 6.8 mg/dL (See Note); Calcium Urine 24 hr 102 mg/24hr (100-300); Timed Urine Volume 1500 mL
== END 2023-07-27 09:29 | disposition home or self-care (01) ==
LOC: LBN 09:28
PROVIDERS: PCP Internal Medicine; Visit Provider Internal Medicine
DX: E21.3 Hyperparathyroidism, unspecified (principal)
CPT/HCPCS: 81050; 82340; 82570

== ENCOUNTER 2023-10-28 01:06 | Outpatient (RCR) | payer MEDICARE, SELFPAY ==
[2023-10-28 12:21] LABS: HCT 38.9 % (36.0-46.0); HGB 12.5 g/dL (11.2-15.7); MCH 30.5 pg (27.0-33.0); MCHC 32.1 % (32.0-36.0); MCV 95 fL (80-95); MPV 8.9 fL (8.0-11.0); Platelet Count 353 10^3/uL (130-400); RDW 14.4 % (11.7-14.6); RDW-SD 50.2 fL; WBC 5.38 10^3/uL (4.4-10.8)
[2023-10-28 12:50] LABS: Ferritin 25 ng/mL (8-252)
== END 2023-11-13 23:59 | disposition home or self-care (01) ==
LOC: INF 01:06
PROVIDERS: PCP Internal Medicine; Visit Provider Nurse Practitioner Family
DX: E83.110 Hereditary hemochromatosis (principal)
CPT/HCPCS: 36415; 85027; 82728

== ENCOUNTER 2023-11-02 10:34 | Outpatient (CLI) | payer MEDICARE, SELFPAY ==
[2023-11-02 10:28] LABS: Abs Immature Grans 0.04 10^3/uL (0.0-0.06); Absolute Basophil Count 0.05 10^3/uL (0.0-0.2); Absolute Eosinophil Count 0.11 10^3/uL (0.0-0.7); Absolute Lymphocyte Count 0.92 10^3/uL (1.2-3.4); Absolute Monocyte Count 0.74 10^3/uL (0.1-0.8); Absolute Neutrophil Count 4.47 10^3/uL (1.2-6.7); Basophils % 0.8; Eosinophils % 1.7; HCT 38.6 % (36.0-46.0); HGB 12.2 g/dL (11.2-15.7); Immature Grans % 0.6; Lymphocytes % 14.5; MCHC 31.6 % (32.0-36.0); MCV 95 fL (80-95); MPV 8.8 fL (8.0-11.0); Monocytes % 11.7; Neutrophils % 70.7; Platelet Count 341 10^3/uL (130-400); RBC 4.06 10^6/uL (3.93-5.22); RDW 14.3 % (11.7-14.6); RDW-SD 50.2 fL; WBC 6.33 10^3/uL (4.4-10.8)
[2023-11-02 10:45] LABS: Iron 40 ug/dL (50-170); Total Iron Binding Capacity 422 ug/dL (250-450); Transferrin Sat 9 % (15-50)
[2023-11-02 10:58] LABS: ALT 20 U/L (14-59); AST 19 U/L (15-37); Albumin 3.9 g/dL (3.4-5.0); Alkaline Phosphatase 111 U/L (46-116); Anion Gap 6.9 mmol/L (3-11); BUN 19 mg/dL (7-18); Bilirubin, Total 0.6 mg/dL (0.2-1.0); CO2 28.1 mmol/L (21.0-32.0); CREATININE 0.9 mg/dL (0.55-1.02); Calcium 10.7 mg/dL (8.5-10.1); Chloride 101 mmol/L (98-107); Estimated GFR 63.83 (mL/min/1.73m2); Ferritin 19 ng/mL (8-252); Glucose 113 mg/dL (74-106); Potassium 4.4 mmol/L (3.5-5.1); Sodium 136 mmol/L (136-145); Total Protein 7.9 g/dL (6.4-8.2)
== END 2023-11-02 10:35 | disposition home or self-care (01) ==
LOC: LBO 10:34
PROVIDERS: PCP Internal Medicine; Visit Provider Internal Medicine Hematology & Oncology
DX: E83.119 Hemochromatosis, unspecified (principal)
CPT/HCPCS: 36415; 80053; 82728; 83540; 83550; 85025

== ENCOUNTER 2024-11-03 00:18 | Outpatient (RCR) | payer MEDICARE, BC, SELFPAY ==
[2024-11-01] MEDS: Normal Saline Flush 10 ML SYR IVP (10:16)
[2024-11-01 10:17] LABS: Abs Immature Grans 0.01 10^3/uL (0.0-0.06); Absolute Basophil Count 0.06 10^3/uL (0.0-0.2); Absolute Eosinophil Count 0.09 10^3/uL (0.0-0.7); Absolute Lymphocyte Count 0.97 10^3/uL (1.2-3.4); Absolute Monocyte Count 0.82 10^3/uL (0.1-0.8); Absolute Neutrophil Count 1.19 10^3/uL (1.2-6.7); Basophils % 1.9 %; Eosinophils % 2.9 %; HGB 10.6 g/dL (11.2-15.7); Immature Grans % 0.3 %; Lymphocytes % 30.9 %; MCH 27.1 pg (27.0-33.0); MCHC 31.2 % (32.0-36.0); MCV 87 fL (80-95); MPV 8.7 fL (8.0-11.0); Monocytes % 26.1 %; Neutrophils % 37.9 %; Platelet Count 521 10^3/uL (130-400); RBC 3.91 10^6/uL (3.93-5.22); RDW 16.3 % (11.7-14.6); RDW-SD 51.4 fL; WBC 3.14 10^3/uL (4.4-10.8)
[2024-11-01 10:42] LABS: ALT 52 U/L (14-59); AST 26 U/L (15-37); Albumin 3.3 g/dL (3.4-5.0); Alkaline Phosphatase 478 U/L (46-116); Anion Gap 8.6 mmol/L (3-11); BUN 16 mg/dL (7-18); Bilirubin, Total 0.42 mg/dL (0.2-1.0); CO2 26.4 mmol/L (21.0-32.0); CREATININE 0.8 mg/dL (0.55-1.02); Calcium 9.8 mg/dL (8.5-10.1); Chloride 103 mmol/L (98-107); Estimated GFR 73.06 (mL/min/1.73m2); Glucose 91 mg/dL (74-106); Potassium 4.6 mmol/L (3.5-5.1); Sodium 138 mmol/L (136-145); Total Protein 7.6 g/dL (6.4-8.2)
[2024-11-01 19:22] LABS: CEA 2.5 ng/mL (See Note)
[2024-11-03] MEDS: Normal Saline Flush 10 ML SYR IVP ×2 (11:44→11:45)
== END 2024-11-13 23:59 | disposition home or self-care (01) ==
LOC: INF 00:18
PROVIDERS: PCP Internal Medicine; Visit Provider Internal Medicine Hematology & Oncology
DX: C18.2 Malignant neoplasm of ascending colon (principal); Z45.2 Encounter for adjustment and management of vascular access device
CPT/HCPCS: 36591; 80053; 96523; 82378; 85025

== ENCOUNTER 2024-12-13 03:23 | Outpatient (RCR) | payer MEDICARE, BC, SELFPAY ==
[2024-11-15] MEDS: Normal Saline Flush 10 ML SYR IVP (08:56)
[2024-11-15 09:19] LABS: Abs Immature Grans 0.01 10^3/uL (0.0-0.06); Absolute Basophil Count 0.06 10^3/uL (0.0-0.2); Absolute Eosinophil Count 0.07 10^3/uL (0.0-0.7); Absolute Lymphocyte Count 0.85 10^3/uL (1.2-3.4); Basophils % 1.8 %; Eosinophils % 2.1 %; HCT 33.3 % (36.0-46.0); HGB 10.5 g/dL (11.2-15.7); Immature Grans % 0.3 %; Lymphocytes % 25.8 %; MCH 27.6 pg (27.0-33.0); MCHC 31.5 % (32.0-36.0); MCV 87 fL (80-95); MPV 8.8 fL (8.0-11.0); Monocytes % 21.3 %; Neutrophils % 48.7 %; Platelet Count 259 10^3/uL (130-400); RBC 3.81 10^6/uL (3.93-5.22); RDW 16.5 % (11.7-14.6); RDW-SD 51.5 fL; WBC 3.29 10^3/uL (4.4-10.8)
[2024-11-15 09:39] LABS: ALT 23 U/L (14-59); AST 19 U/L (15-37); Alkaline Phosphatase 199 U/L (46-116); Anion Gap 8.5 mmol/L (3-11); BUN 16 mg/dL (7-18); Bilirubin, Total 0.26 mg/dL (0.2-1.0); CO2 25.5 mmol/L (21.0-32.0); CREATININE 0.8 mg/dL (0.55-1.02); Calcium 9.9 mg/dL (8.5-10.1); Chloride 103 mmol/L (98-107); Estimated GFR 73.06 (mL/min/1.73m2); Glucose 86 mg/dL (74-106); Potassium 4.4 mmol/L (3.5-5.1); Sodium 137 mmol/L (136-145); Total Protein 7.2 g/dL (6.4-8.2)
[2024-11-15 18:31] LABS: CEA 2.4 ng/mL (See Note)
[2024-11-29] MEDS: Normal Saline Flush 10 ML SYR IVP (10:51)
[2024-11-29 11:01] LABS: Abs Immature Grans 0.03 10^3/uL (0.0-0.06); Absolute Basophil Count 0.05 10^3/uL (0.0-0.2); Absolute Eosinophil Count 0.06 10^3/uL (0.0-0.7); Absolute Lymphocyte Count 0.92 10^3/uL (1.2-3.4); Absolute Monocyte Count 0.67 10^3/uL (0.1-0.8); Absolute Neutrophil Count 1.42 10^3/uL (1.2-6.7); Basophils % 1.6 %; Eosinophils % 1.9 %; HCT 33.4 % (36.0-46.0); HGB 10.6 g/dL (11.2-15.7); Lymphocytes % 29.2 %; MCH 27.5 pg (27.0-33.0); MCHC 31.7 % (32.0-36.0); MCV 87 fL (80-95); MPV 8.8 fL (8.0-11.0); Monocytes % 21.3 %; Platelet Count 292 10^3/uL (130-400); RBC 3.85 10^6/uL (3.93-5.22); RDW 17.2 % (11.7-14.6); RDW-SD 52.7 fL; WBC 3.15 10^3/uL (4.4-10.8)
[2024-11-29 11:22] LABS: ALT 27 U/L (14-59); AST 25 U/L (15-37); Albumin 3.2 g/dL (3.4-5.0); Alkaline Phosphatase 129 U/L (46-116); Anion Gap 6.9 mmol/L (3-11); BUN 15 mg/dL (7-18); CO2 26.1 mmol/L (21.0-32.0); CREATININE 0.7 mg/dL (0.55-1.02); Calcium 9.9 mg/dL (8.5-10.1); Chloride 106 mmol/L (98-107); Estimated GFR 85.76 (mL/min/1.73m2); Glucose 98 mg/dL (74-106); Potassium 3.8 mmol/L (3.5-5.1); Sodium 139 mmol/L (136-145); Total Protein 7.1 g/dL (6.4-8.2)
[2024-11-29 19:04] LABS: CEA 2.4 ng/mL (See Note)
[2024-12-01] MEDS: Normal Saline Flush 10 ML SYR IVP (13:24)
[2024-12-13 10:30] LABS: Abs Immature Grans 0.01 10^3/uL (0.0-0.06); Absolute Basophil Count 0.03 10^3/uL (0.0-0.2); Absolute Eosinophil Count 0.06 10^3/uL (0.0-0.7); Absolute Lymphocyte Count 0.69 10^3/uL (1.2-3.4); Absolute Monocyte Count 0.46 10^3/uL (0.1-0.8); Absolute Neutrophil Count 1.46 10^3/uL (1.2-6.7); Basophils % 1.1 %; Eosinophils % 2.2 %; HCT 33.4 % (36.0-46.0); HGB 10.6 g/dL (11.2-15.7); Immature Grans % 0.4 %; Lymphocytes % 25.5 %; MCH 27.7 pg (27.0-33.0); MCHC 31.7 % (32.0-36.0); MCV 87 fL (80-95); MPV 8.7 fL (8.0-11.0); Neutrophils % 53.8 %; Platelet Count 213 10^3/uL (130-400); RBC 3.82 10^6/uL (3.93-5.22); RDW 17.9 % (11.7-14.6); RDW-SD 55.1 fL; WBC 2.71 10^3/uL (4.4-10.8)
[2024-12-13] MEDS: Normal Saline Flush 10 ML SYR IVP (10:46)
[2024-12-13 10:47] LABS: ALT 19 U/L (14-59); AST 16 U/L (15-37); Albumin 3.2 g/dL (3.4-5.0); Alkaline Phosphatase 114 U/L (46-116); Anion Gap 8.2 mmol/L (3-11); BUN 14 mg/dL (7-18); Bilirubin, Total 0.35 mg/dL (0.2-1.0); CO2 26.8 mmol/L (21.0-32.0); CREATININE 0.8 mg/dL (0.55-1.02); Calcium 10.1 mg/dL (8.5-10.1); Chloride 106 mmol/L (98-107); Estimated GFR 72.61 (mL/min/1.73m2); Glucose 104 mg/dL (74-106); Potassium 3.7 mmol/L (3.5-5.1); Sodium 141 mmol/L (136-145); Total Protein 6.9 g/dL (6.4-8.2)
[2024-12-13 21:26] LABS: CEA 3.1 ng/mL (See Note)
== END 2024-12-14 23:59 | disposition home or self-care (01) ==
LOC: INF 03:23
PROVIDERS: Nurse Practitioner Family; PCP Internal Medicine; Visit Provider Internal Medicine Hematology & Oncology
DX: C18.2 Malignant neoplasm of ascending colon (principal)
CPT/HCPCS: 36591; 80053; 96523; 82378; 85025

== ENCOUNTER 2025-01-05 00:05 | Outpatient (RCR) | payer MEDICARE, BC, SELFPAY ==
[2024-12-15] MEDS: Normal Saline Flush 10 ML SYR IVP (12:18)
[2024-12-27] MEDS: Normal Saline Flush 10 ML SYR IVP (09:42)
[2024-12-27 10:01] LABS: Absolute Basophil Count 0.03 10^3/uL (0.0-0.2); Absolute Eosinophil Count 0.04 10^3/uL (0.0-0.7); HGB 10.4 g/dL (11.2-15.7); MCH 28.7 pg (27.0-33.0); MCHC 32.5 % (32.0-36.0); MCV 88 fL (80-95); MPV 8.4 fL (8.0-11.0); Platelet Count 202 10^3/uL (130-400); RBC 3.63 10^6/uL (3.93-5.22); RDW 19.3 % (11.7-14.6); RDW-SD 60.5 fL
[2024-12-27 10:22] LABS: Absolute Lymphocyte Count 0.97 10^3/uL (1.2-3.4); Absolute Monocyte Count 0.38 10^3/uL (0.1-0.8); Bands % 1 %; Diff Comment Manual Differential
[2024-12-27 10:23] LABS: Anisocytosis 1+
[2024-12-27 10:28] LABS: Absolute Neutrophil Count 0.52 10^3/uL (1.2-6.7)
[2024-12-27 10:29] LABS: WBC 1.91 10^3/uL (4.4-10.8)
[2024-12-27 11:30] LABS: ALT 32 U/L (14-59); AST 24 U/L (15-37); Alkaline Phosphatase 126 U/L (46-116); Anion Gap 6.8 mmol/L (3-11); BUN 9 mg/dL (7-18); Bilirubin, Total 0.38 mg/dL (0.2-1.0); CO2 27.2 mmol/L (21.0-32.0); CREATININE 0.7 mg/dL (0.55-1.02); Calcium 9.6 mg/dL (8.5-10.1); Chloride 107 mmol/L (98-107); Estimated GFR 85.23 (mL/min/1.73m2); Glucose 98 mg/dL (74-106); Potassium 3.8 mmol/L (3.5-5.1); Sodium 141 mmol/L (136-145); Total Protein 6.5 g/dL (6.4-8.2)
[2024-12-27 22:37] LABS: CEA 2.9 ng/mL (See Note)
[2025-01-03] MEDS: Normal Saline Flush 10 ML SYR IVP (11:47)
[2025-01-03 11:54] LABS: Abs Immature Grans 0.18 10^3/uL (0.0-0.06); Absolute Basophil Count 0.06 10^3/uL (0.0-0.2); Absolute Lymphocyte Count 1.28 10^3/uL (1.2-3.4); Absolute Monocyte Count 0.97 10^3/uL (0.1-0.8); Absolute Neutrophil Count 2.23 10^3/uL (1.2-6.7); Basophils % 1.2 %; Eosinophils % 2.1 %; HCT 33.6 % (36.0-46.0); HGB 10.7 g/dL (11.2-15.7); Immature Grans % 3.7 %; Lymphocytes % 26.6 %; MCH 28.8 pg (27.0-33.0); MCHC 31.8 % (32.0-36.0); MCV 91 fL (80-95); MPV 8.9 fL (8.0-11.0); Monocytes % 20.1 %; Neutrophils % 46.3 %; Platelet Count 375 10^3/uL (130-400); RBC 3.71 10^6/uL (3.93-5.22); RDW 21.2 % (11.7-14.6); RDW-SD 68.2 fL; WBC 4.82 10^3/uL (4.4-10.8)
[2025-01-03 12:06] LABS: Anisocytosis 1+; Diff Comment RBC Morph Reviewed
[2025-01-03 13:29] LABS: ALT 27 U/L (14-59); AST 33 U/L (15-37); Albumin 3.2 g/dL (3.4-5.0); Alkaline Phosphatase 178 U/L (46-116); Anion Gap 8.4 mmol/L (3-11); BUN 9 mg/dL (7-18); Bilirubin, Total 0.34 mg/dL (0.2-1.0); CO2 26.6 mmol/L (21.0-32.0); CREATININE 0.8 mg/dL (0.55-1.02); Calcium 9.9 mg/dL (8.5-10.1); Chloride 105 mmol/L (98-107); Estimated GFR 72.61 (mL/min/1.73m2); Glucose 105 mg/dL (74-106); Potassium 4.6 mmol/L (3.5-5.1); Sodium 140 mmol/L (136-145); Total Protein 6.8 g/dL (6.4-8.2)
[2025-01-03 18:36] LABS: CEA 3.2 ng/mL (See Note)
[2025-01-05] MEDS: Normal Saline Flush 10 ML SYR IVP ×2 (13:40→13:41)
== END 2025-01-11 23:59 | disposition home or self-care (01) ==
LOC: INF 00:05
PROVIDERS: Nurse Practitioner Family; PCP Internal Medicine; Visit Provider Internal Medicine Hematology & Oncology
DX: C18.2 Malignant neoplasm of ascending colon (principal); D70.1 Agranulocytosis secondary to cancer chemotherapy
CPT/HCPCS: 36591; 80053; 96523; 82378; 85025; Q5108

== ENCOUNTER 2025-01-31 01:26 | Outpatient (RCR) | payer MEDICARE, BC, SELFPAY ==
[2025-01-17] MEDS: Normal Saline Flush 10 ML SYR IVP (09:21)
[2025-01-17 10:10] LABS: Abs Immature Grans 0.78 10^3/uL (0.0-0.06); HCT 32.9 % (36.0-46.0); HGB 10.4 g/dL (11.2-15.7); MCH 28.9 pg (27.0-33.0); MCHC 31.6 % (32.0-36.0); MCV 91 fL (80-95); MPV 9.4 fL (8.0-11.0); Platelet Count 288 10^3/uL (130-400); RDW 21.4 % (11.7-14.6); WBC 8.13 10^3/uL (4.4-10.8)
[2025-01-17 10:29] LABS: ALT 25 U/L (14-59); AST 24 U/L (15-37); Albumin 2.8 g/dL (3.4-5.0); Alkaline Phosphatase 177 U/L (46-116); Anion Gap 8.2 mmol/L (3-11); BUN 12 mg/dL (7-18); Bilirubin, Total 0.25 mg/dL (0.2-1.0); CO2 25.8 mmol/L (21.0-32.0); CREATININE 0.7 mg/dL (0.55-1.02); Calcium 9.8 mg/dL (8.5-10.1); Chloride 104 mmol/L (98-107); Estimated GFR 85.23 (mL/min/1.73m2); Glucose 99 mg/dL (74-106); Potassium 4.4 mmol/L (3.5-5.1); Sodium 138 mmol/L (136-145); Total Protein 6.9 g/dL (6.4-8.2)
[2025-01-17 10:33] LABS: Absolute Eosinophil Count 0.24 10^3/uL (0.0-0.7); Absolute Lymphocyte Count 1.63 10^3/uL (1.2-3.4); Absolute Monocyte Count 0.49 10^3/uL (0.1-0.8); Atypical Lymphocytes % 0 %
[2025-01-17 10:34] LABS: Absolute Neutrophil Count 5.61 10^3/uL (1.2-6.7); Bands % 3 %; Diff Comment Manual Differential; Metamyelocytes % 2
[2025-01-17 18:36] LABS: CEA 2.2 ng/mL (See Note)
[2025-01-19] MEDS: Normal Saline Flush 10 ML SYR IVP ×2 (09:58→10:00)
[2025-01-31] MEDS: Normal Saline Flush 10 ML SYR IVP (10:47)
[2025-01-31 10:59] LABS: Abs Immature Grans 0.03 10^3/uL (0.0-0.06); Absolute Basophil Count 0.05 10^3/uL (0.0-0.2); Absolute Eosinophil Count 0.07 10^3/uL (0.0-0.7); Absolute Lymphocyte Count 0.84 10^3/uL (1.2-3.4); Absolute Neutrophil Count 3.02 10^3/uL (1.2-6.7); Basophils % 1.1 %; Eosinophils % 1.5 %; HCT 34.7 % (36.0-46.0); HGB 10.9 g/dL (11.2-15.7); Immature Grans % 0.6 %; Lymphocytes % 17.8 %; MCH 29.9 pg (27.0-33.0); MCHC 31.4 % (32.0-36.0); MCV 95 fL (80-95); MPV 8.7 fL (8.0-11.0); Monocytes % 14.9 %; Neutrophils % 64.1 %; Platelet Count 305 10^3/uL (130-400); RBC 3.65 10^6/uL (3.93-5.22); RDW 21.8 % (11.7-14.6); RDW-SD 75.4 fL; WBC 4.71 10^3/uL (4.4-10.8)
[2025-01-31 11:12] LABS: ALT 29 U/L (14-59); AST 19 U/L (15-37); Albumin 3.1 g/dL (3.4-5.0); Alkaline Phosphatase 172 U/L (46-116); Anion Gap 7.9 mmol/L (3-11); BUN 11 mg/dL (7-18); Bilirubin, Total 0.3 mg/dL (0.2-1.0); CO2 27.1 mmol/L (21.0-32.0); CREATININE 0.8 mg/dL (0.55-1.02); Calcium 10.5 mg/dL (8.5-10.1); Chloride 104 mmol/L (98-107); Estimated GFR 72.61 (mL/min/1.73m2); Glucose 107 mg/dL (74-106); Potassium 4.5 mmol/L (3.5-5.1); Sodium 139 mmol/L (136-145); Total Protein 7.1 g/dL (6.4-8.2)
[2025-01-31 18:54] LABS: CEA 2.5 ng/mL (See Note)
[2025-02-02] MEDS: Normal Saline Flush 10 ML SYR IVP (11:39)
== END 2025-02-11 23:59 | disposition home or self-care (01) ==
LOC: INF 01:26
PROVIDERS: Nurse Practitioner Family; PCP Internal Medicine; Visit Provider Internal Medicine Hematology & Oncology
DX: C18.2 Malignant neoplasm of ascending colon (principal); D70.1 Agranulocytosis secondary to cancer chemotherapy
CPT/HCPCS: 36591; 80053; 96523; 82378; 85025

== ENCOUNTER 2025-03-02 00:52 | Outpatient (RCR) | payer MEDICARE, BC, SELFPAY ==
[2025-02-14] MEDS: Normal Saline Flush 10 ML SYR IVP (10:32)
[2025-02-14 10:42] LABS: Abs Immature Grans 0.02 10^3/uL (0.0-0.06); Absolute Basophil Count 0.04 10^3/uL (0.0-0.2); Absolute Eosinophil Count 0.07 10^3/uL (0.0-0.7); Absolute Lymphocyte Count 0.76 10^3/uL (1.2-3.4); Absolute Monocyte Count 0.51 10^3/uL (0.1-0.8); Absolute Neutrophil Count 2.31 10^3/uL (1.2-6.7); Basophils % 1.1 %; Eosinophils % 1.9 %; HCT 33.4 % (36.0-46.0); Immature Grans % 0.5 %; Lymphocytes % 20.5 %; MCH 31.4 pg (27.0-33.0); MCHC 32.9 % (32.0-36.0); MCV 95 fL (80-95); MPV 8.7 fL (8.0-11.0); Monocytes % 13.7 %; Neutrophils % 62.3 %; Platelet Count 270 10^3/uL (130-400); RDW 21.3 % (11.7-14.6); RDW-SD 74.8 fL; WBC 3.71 10^3/uL (4.4-10.8)
[2025-02-14 11:01] LABS: ALT 23 U/L (14-59); AST 18 U/L (15-37); Albumin 3.2 g/dL (3.4-5.0); Alkaline Phosphatase 155 U/L (46-116); BUN 14 mg/dL (7-18); Bilirubin, Total 0.5 mg/dL (0.2-1.0); CREATININE 0.7 mg/dL (0.55-1.02); Calcium 9.9 mg/dL (8.5-10.1); Chloride 105 mmol/L (98-107); Estimated GFR 85.23 (mL/min/1.73m2); Glucose 94 mg/dL (74-106); Potassium 4.2 mmol/L (3.5-5.1); Sodium 140 mmol/L (136-145); Total Protein 6.8 g/dL (6.4-8.2)
[2025-02-14 11:15] LABS: Anisocytosis 2+; Diff Comment RBC Morph Reviewed; Polychromasia Present
[2025-02-14 18:54] LABS: CEA 2.3 ng/mL (See Note)
[2025-02-16] MEDS: Normal Saline Flush 10 ML SYR IVP ×2 (10:17→10:18)
[2025-02-28] MEDS: Normal Saline Flush 10 ML SYR IVP (12:03)
[2025-02-28 12:23] LABS: Abs Immature Grans 0.03 10^3/uL (0.0-0.06); Absolute Basophil Count 0.06 10^3/uL (0.0-0.2); Absolute Eosinophil Count 0.11 10^3/uL (0.0-0.7); Absolute Lymphocyte Count 1.02 10^3/uL (1.2-3.4); Absolute Monocyte Count 0.59 10^3/uL (0.1-0.8); Basophils % 1.1 %; HCT 34.8 % (36.0-46.0); HGB 11.3 g/dL (11.2-15.7); Immature Grans % 0.6 %; Lymphocytes % 18.9 %; MCHC 32.5 % (32.0-36.0); MCV 99 fL (80-95); MPV 8.6 fL (8.0-11.0); Monocytes % 10.9 %; Neutrophils % 66.5 %; Platelet Count 239 10^3/uL (130-400); RBC 3.53 10^6/uL (3.93-5.22); RDW 19.3 % (11.7-14.6); RDW-SD 70.4 fL; WBC 5.41 10^3/uL (4.4-10.8)
[2025-02-28 12:55] LABS: ALT 24 U/L (14-59); AST 19 U/L (15-37); Albumin 3.4 g/dL (3.4-5.0); Alkaline Phosphatase 150 U/L (46-116); Anion Gap 7.3 mmol/L (3-11); BUN 13 mg/dL (7-18); Bilirubin, Total 0.6 mg/dL (0.2-1.0); CO2 26.7 mmol/L (21.0-32.0); CREATININE 0.9 mg/dL (0.55-1.02); Calcium 10.1 mg/dL (8.5-10.1); Chloride 104 mmol/L (98-107); Estimated GFR 63.04 (mL/min/1.73m2); Glucose 104 mg/dL (74-106); Potassium 3.9 mmol/L (3.5-5.1); Sodium 138 mmol/L (136-145); Total Protein 6.8 g/dL (6.4-8.2)
[2025-02-28 22:19] LABS: CEA 2.4 ng/mL (See Note)
[2025-03-02] MEDS: Normal Saline Flush 10 ML SYR IVP (13:34)
== END 2025-03-13 23:59 | disposition home or self-care (01) ==
LOC: INF 00:52
PROVIDERS: Nurse Practitioner Family; PCP Internal Medicine; Visit Provider Internal Medicine Hematology & Oncology
DX: C18.2 Malignant neoplasm of ascending colon (principal); Z45.2 Encounter for adjustment and management of vascular access device
CPT/HCPCS: 36591; 80053; 96523; 82378; 85025

== ENCOUNTER 2025-04-06 00:01 | Outpatient (RCR) | payer MEDICARE, BC, SELFPAY ==
[2025-03-14] MEDS: Normal Saline Flush 10 ML SYR IVP (13:34)
[2025-03-14 13:52] LABS: Abs Immature Grans 0.04 10^3/uL (0.0-0.06); Absolute Basophil Count 0.05 10^3/uL (0.0-0.2); Absolute Eosinophil Count 0.09 10^3/uL (0.0-0.7); Absolute Lymphocyte Count 1.26 10^3/uL (1.2-3.4); Absolute Monocyte Count 0.66 10^3/uL (0.1-0.8); Absolute Neutrophil Count 3.42 10^3/uL (1.2-6.7); Basophils % 0.9 %; Eosinophils % 1.6 %; HCT 35.7 % (36.0-46.0); HGB 11.8 g/dL (11.2-15.7); Immature Grans % 0.7 %; Lymphocytes % 22.8 %; MCH 33.5 pg (27.0-33.0); MCHC 33.1 % (32.0-36.0); MCV 101 fL (80-95); MPV 8.9 fL (8.0-11.0); Platelet Count 250 10^3/uL (130-400); RBC 3.52 10^6/uL (3.93-5.22); RDW 17.2 % (11.7-14.6); RDW-SD 64.5 fL; WBC 5.52 10^3/uL (4.4-10.8)
[2025-03-14 14:11] LABS: ALT 24 U/L (14-59); AST 19 U/L (15-37); Albumin 3.4 g/dL (3.4-5.0); Alkaline Phosphatase 152 U/L (46-116); Anion Gap 8.5 mmol/L (3-11); BUN 17 mg/dL (7-18); Bilirubin, Total 0.4 mg/dL (0.2-1.0); CO2 25.5 mmol/L (21.0-32.0); CREATININE 0.8 mg/dL (0.55-1.02); Calcium 10.1 mg/dL (8.5-10.1); Chloride 107 mmol/L (98-107); Estimated GFR 72.61 (mL/min/1.73m2); Glucose 117 mg/dL (74-106); Potassium 3.7 mmol/L (3.5-5.1); Sodium 141 mmol/L (136-145); Total Protein 6.8 g/dL (6.4-8.2)
[2025-03-14 23:10] LABS: CEA 2.4 ng/mL (See Note)
[2025-03-16 13:55] VITALS: BP 157/95; PULSE 83; RESP 16; TEMP 36.1; O2SAT 99
[2025-03-16] MEDS: Normal Saline Flush 10 ML SYR IVP (14:06)
[2025-04-04 13:30] LABS: Abs Immature Grans 0.18 10^3/uL (0.0-0.06); Absolute Basophil Count 0.06 10^3/uL (0.0-0.2); Absolute Eosinophil Count 0.15 10^3/uL (0.0-0.7); Absolute Lymphocyte Count 1.34 10^3/uL (1.2-3.4); Absolute Monocyte Count 0.77 10^3/uL (0.1-0.8); Absolute Neutrophil Count 3.71 10^3/uL (1.2-6.7); Eosinophils % 2.4 %; HCT 37.4 % (36.0-46.0); HGB 12.3 g/dL (11.2-15.7); Immature Grans % 2.9 %; Lymphocytes % 21.6 %; MCH 33.4 pg (27.0-33.0); MCHC 32.9 % (32.0-36.0); MCV 102 fL (80-95); Monocytes % 12.4 %; Neutrophils % 59.7 %; Platelet Count 331 10^3/uL (130-400); RBC 3.68 10^6/uL (3.93-5.22); RDW 16.1 % (11.7-14.6); RDW-SD 60.4 fL; WBC 6.21 10^3/uL (4.4-10.8)
[2025-04-04] MEDS: Normal Saline Flush 10 ML SYR IVP (13:30)
[2025-04-04 13:53] LABS: ALT 21 U/L (14-59); AST 20 U/L (15-37); Albumin 3.6 g/dL (3.4-5.0); Alkaline Phosphatase 147 U/L (46-116); Anion Gap 3.5 mmol/L (3-11); BUN 18 mg/dL (7-18); Bilirubin, Total 0.3 mg/dL (0.2-1.0); CO2 30.5 mmol/L (21.0-32.0); CREATININE 1.1 mg/dL (0.55-1.02); Calcium 10.1 mg/dL (8.5-10.1); Chloride 103 mmol/L (98-107); Estimated GFR 49.55 (mL/min/1.73m2); Glucose 106 mg/dL (74-106); Potassium 4.1 mmol/L (3.5-5.1); Sodium 137 mmol/L (136-145)
[2025-04-04 22:46] LABS: CEA 2.2 ng/mL (See Note)
== END 2025-04-13 23:59 | disposition home or self-care (01) ==
LOC: INF 00:01
PROVIDERS: Nurse Practitioner Family; PCP Internal Medicine; Visit Provider Internal Medicine Hematology & Oncology
DX: C18.2 Malignant neoplasm of ascending colon (principal); Z45.2 Encounter for adjustment and management of vascular access device
CPT/HCPCS: 36591; 80053; 96523; 82378; 85025

== ENCOUNTER 2025-05-09 11:56 | Outpatient (RCR) | payer MEDICARE, BC, SELFPAY ==
[2025-05-09] MEDS: Normal Saline Flush 10 ML SYR IVP (12:37)
[2025-05-09 12:56] LABS: Ferritin 33 ng/mL (8-252)
[2025-05-09 13:23] LABS: Iron 80 ug/dL (50-170); Total Iron Binding Capacity 425 ug/dL (250-450); Transferrin Sat 19 % (15-50)
== END 2025-05-13 23:59 | disposition home or self-care (01) ==
LOC: INF 11:56
PROVIDERS: PCP Internal Medicine; Visit Provider Internal Medicine Hematology & Oncology
DX: C18.2 Malignant neoplasm of ascending colon (principal); Z45.2 Encounter for adjustment and management of vascular access device
CPT/HCPCS: 36591; 82728; 83540; 83550

== ENCOUNTER 2025-05-23 01:12 | Outpatient (CLI) | payer MEDICARE, BC, SELFPAY ==
--- NOTE | 2025-05-23 | DI.DEXA_ITS ---
Exam(s) XR DEXA BONE DENSITY W/WO SHELLY EXAM: XR DEXA BONE DENSITY W/WO SHELLY CLINICAL HISTORY: Osteoporosis w/hyperparathyroidism, pathological fracture presence M81.0 TECHNIQUE: [employer] densitometer analysis of left hip, lumbar spine and left forearm. Lateral survey image of the thoracic and lumbar spine. COMPARISON: Exams from 2005 through 2022 FINDINGS: Lateral view of the thoracic and lumbar spine shows no evidence of compression fractures. Bone mineral density measurements of the lumbar spine correspond to a total T- score of -1.1, in the osteopenic range. This is not significantly changed from 2022 but represents a 2.7 percent decrease from 2005. Bone mineral density measurements of the left hip correspond to a total T-score of -2.5, in the osteoporotic range. This is not significantly changed from 2022 but represents a 22.7 percent decrease from 2005. The femoral neck T-score is -2.4. Theleft forearm bone mineral density measurements correspond to a T-score of the distal 3rd of -2.5, in the osteoporotic range. This represents a 3.4 percent decrease from 2022 and 8.8 percent decrease from 2009. The forearm was not analyzed prior to 2009. IMPRESSION: Osteopenia of the lumbar spine. Osteoporosis of the hip and forearm.
== END 2025-05-23 01:32 ==
PROVIDERS: PCP Internal Medicine; Visit Provider Internal Medicine
DX: M81.0 Age-related osteoporosis without current pathological fracture (principal)
CPT/HCPCS: 77080